=== PATIENT | male | born 1980 ===

== ENCOUNTER 2017-01-24 08:38 | Emergency (ER) | payer OTHER ==
[2017-01-24 08:44] VITALS: BP 162/82; PULSE 81; RESP 18; TEMP 98.1; O2SAT 98
--- NOTE | 2017-01-24 08:55 | ED PDOC ---
HPI: General Adult Time Seen by Provider: 01/24/17 08:43 History Per: Patient (Rectal pain and itching x 3 days. Noticed blood on paper when wiping.) Onset/Duration Of Symptoms: Days (3) Current Symptoms Are (Timing): Still Present Severity: Mild Pain Scale Rating Of: 2 Past Medical History Vital Signs: Last Vital Signs Temp 98.1 F 01/24/17 08:43 Pulse 81 01/24/17 08:43 Resp 18 01/24/17 08:43 BP 162/82 H 01/24/17 08:43 Pulse Ox 98 01/24/17 08:43 - Medical History PMH: Diverticulitis - Family History Family History: States: Unknown Family Hx - Home Medications Home Medications: Ambulatory Orders Medication Instructions Recorded Naproxen 500 mg PO BID PRN #20 tab 08/14/16 Hard Fat/Phenylephrine [place] 1 sup RC BID #10 sup 01/24/17 [Anusol Suppository] Naproxen [Naprosyn] 500 mg PO Q12H #20 tab 01/24/17 - Allergies Allergies/Adverse Reactions: Allergies Allergy/AdvReac Type Severity Reaction Status Date / Time No Known Allergies Allergy Verified 08/14/16 14:43 Review of Systems Constitutional: Negative for: Fever Gastrointestinal: Positive for: Hematochezia, Other (Rectal pain). Negative for : Abdominal Pain Physical Exam - Physical Exam Appears: Positive for: Non-toxic, No Acute Distress Skin: Positive for: Normal Color, Warm, DRY Gastrointestinal/Abdominal: Positive for: Bowel Sounds, Soft. Negative for: Tenderness Rectal: Positive for: Hemorrhoids (Ext hemorrhoid 9 oclock no blood on glove no masses.) - ECG O2 Sat by Pulse Oximetry: 98 Disposition - Clinical Impression Clinical Impression: Hemorrhoids - Patient ED Disposition Is Patient to be Admitted: No Counseled Patient/Family Regarding: Diagnosis, Need For Followup, Rx Given - Disposition Referrals: [facility] [Outside] Disposition: Routine/Home Disposition Time: 08:55 Condition: FAIR Prescriptions: Hard Fat/Phenylephrine [place] [Anusol Suppository] 1 sup RC BID #10 sup Naproxen [Naprosyn] 500 mg PO Q12H #20 tab Instructions: Hemorrhoids (ED)
== END 2017-01-24 09:49 | disposition home or self-care (01) ==
LOC: H.ER 08:38 → SUPCPDRO 08:38 → H.ER 09:49
DX: K64.9 Unspecified hemorrhoids (principal)

== ENCOUNTER 2017-05-20 16:00 | Observation (INO) | payer SELFPAY ==
[2017-05-20 16:16] VITALS: BP 144/74; PULSE 67; RESP 20; TEMP 98.8; O2SAT 98
[2017-05-20] MEDS ORDERED: Iohexol 240 (50 ml) PO STA (16:32)
[2017-05-20] MEDS ORDERED: Morphine 4 MG/ML VIAL IV STA (16:33)
[2017-05-20] MEDS ORDERED: Iohexol 240 (50 ml) ONE (16:46)
--- NOTE | 2017-05-20 16:49 | ED PDOC ---
"HPI: Abdomen Time Seen by Provider: 05/20/17 16:19 Chief Complaint (Nursing): Abdominal Pain Chief Complaint (Provider): Abdominal Pain History Per: Patient Onset/Duration Of Symptoms: Days (x1 week) Current Symptoms Are (Timing): Still Present Additional Complaint(s): Kendrick Alvarez is a 36 year male with previous medical history of diverticulitis and hypertension, who presents to the emergency department with a complaint of right abdominal swelling associated with hematuria ongoing for 1 week. Denied any dysuria, fever, chills, nausea, vomiting, constipation, or diarrhea. Of note, patient was seen in another hospital 2 years ago for intestinal surgery for the diverticulitis. PMD: none provided Past Medical History Reviewed: Historical Data, Nursing Documentation, Vital Signs Vital Signs: Last Vital Signs Temp 98.8 F 05/20/17 16:13 Pulse 67 05/20/17 16:13 Resp 20 05/20/17 16:13 BP 144/74 05/20/17 16:13 Pulse Ox 98 05/20/17 22:28 - Medical History PMH: Diverticulitis, HTN - Family History Family History: States: Unknown Family Hx - Social History Current smoker - smoking cessation education provided: No Alcohol: None Drugs: Denies - Home Medications Home Medications: Ambulatory Orders Medication Instructions Recorded Naproxen 500 mg PO BID PRN #20 tab 08/14/16 Hard Fat/Phenylephrine [place] 1 sup RC BID #10 sup 01/24/17 [Anusol Suppository] Naproxen [Naprosyn] 500 mg PO Q12H #20 tab 01/24/17 Naproxen [Naprosyn] 500 mg PO BID PRN #15 tablet 05/20/17 - Allergies Allergies/Adverse Reactions: Allergies Allergy/AdvReac Type Severity Reaction Status Date / Time No Known Allergies Allergy Verified 05/20/17 16:13 Review of Systems ROS Statement: Except As Marked, All Systems Reviewed And Found Negative Constitutional: Negative for: Fever, Chills Gastrointestinal: Positive for: Abdominal Pain (right sided swelling). Negative for: Nausea, Vomiting, Diarrhea, Constipation Genitourinary Male: Negative for: Dysuria Physical Exam - Reviewed Nursing Documentation Reviewed: Yes Vital Signs Reviewed: Yes - Physical Exam Appears: Positive for: Well, Non-toxic, No Acute Distress Head Exam: Positive for: ATRAUMATIC, NORMAL INSPECTION, NORMOCEPHALIC Skin: Positive for: Normal Color Cardiovascular/Chest: Positive for: Regular Rate, Rhythm Respiratory: Positive for: CNT, Normal Breath Sounds Gastrointestinal/Abdominal: Positive for: Soft, Tenderness (RUQ > RLQ), Other ( right T-shaped horizontal scar). Negative for: Normal Exam Extremity: Positive for: Normal ROM Neurologic/Psych: Positive for: Alert, chef broiler or fry II-XII, Oriented - Laboratory Results Result Diagrams: 05/20/17 17:11 05/20/17 17:11 - ECG O2 Sat by Pulse Oximetry: 98 (RA) Pulse Ox Interpretation: Normal Medical Decision Making Medical Decision Making: Initial Impression: UTI; Pyelonephritis; Kidney stones Initial Plan: * CT ABD/Pelvis with PO and IV contrast * Labs * Lipase * Urine dipstick * Omnipaque 240 50ml PO * Morphine 2mg IV * Urinalysis * Admit to hospital Time: 2016 --CT ABD/Pelvis FINDINGS: Limitations: The examination is degraded by motion artifact and by image noise secondary to the patient's body habitus. Lower thorax: No pulmonary airspace consolidation or pleural fluid collection in the imaged portion of the thorax. ABDOMEN: Liver: No acute findings. Gallbladder and bile ducts: No acute findings. No radiopaque gallstones. Pancreas: No acute findings. Spleen: No acute findings. Adrenals: No acute findings. Kidneys and ureters: No urinary tract dilation, perinephric fat stranding, or radiopaque ureteral calculus. Redemonstrated small, nonobstructing calculus in the right renal collecting system. Stomach and bowel: Redemonstrated diastasis recti versus a wide-mouth ventral hernia of the upper abdominal wall with protrusion of several small bowel loops into the abdominal wall defect. There is mild dilation of several small bowel loops either just proximal or just distal to the bowel KENDRICK ARREDONDO | Preliminary Radiology Report RESOURCE SPECIALIST (QA) DISCREPANCY? If there is a discrepancy between the preliminary and final interpretation, please notify [facility] via [email or web address]. If you do not have access to our QA portal, call our QA team at [phone] CONFIDENTIALITY STATEMENT This report is intended only for the use of the referring physician, and only in accordance with law, If you received this in error, call [phone] Page 2 of 2 protruding into the abdominal wall defect. No other dilated small bowel loops. Oral contrast has passed through all of the small bowel to the level of the terminal ileum. Redemonstrated postsurgical changes consistent with subtotal colectomy. No evident acute abnormality of the remaining colon. Appendix: Normal appendix. PELVIS: Bladder: No evident acute abnormality. Reproductive: No evident acute abnormality of the imaged structures. ABDOMEN and PELVIS: Intraperitoneal space: No free intraperitoneal fluid or air. Bones/joints: No acute findings. Soft tissues: See above. Vasculature: No acute findings. Lymph nodes: No acute findings. IMPRESSION: 1. Redemonstrated diastasis recti versus a wide-mouth ventral hernia of the upper abdominal wall with protrusion of several small bowel loops into the abdominal wall defect. Mild dilation of several small bowel loops either just proximal or just distal to the bowel protruding into the abdominal wall defect may simply represent peristalsis but differential diagnosis also includes a low-grade partial small bowel obstruction. Oral contrast has passed through all of the small bowel to the level of the terminal ileum. 2. No other evident acute abnormality. Non-acute findings as described above Time: 2219 --Patient was evaluated by surgical services manager. Scribe Attestation: Documented by Nicky Ramirez, acting as a scribe for Lena Valentin MD. Provider Scribe Attestation: All medical record entries made by the Scribe were at my direction and personally dictated by me. I have reviewed the chart and agree that the record accurately reflects my personal performance of the history, physical exam, medical decision making, and the department course for this patient. I have also personally directed, reviewed, and agree with the discharge instructions and disposition. Disposition - Clinical Impression Clinical Impression: Abdominal pain, Hematuria - Disposition Disposition: Routine/Home Disposition Time: 22:29 Condition: STABLE"
[2017-05-20 17:18] LABS: BASO # 0.1 K/uL (0.0-0.2); BASO % 0.9 % (0.0-2.0); EOS # 0.1 K/uL (0.0-0.7); EOS % 1.2 % (0.0-4.0); HEMOGLOBIN 13.4 g/dL (12.0-18.0); LYMPH # 2.4 K/uL (1.0-4.3); LYMPH % 26.6 % (20.0-40.0); MEAN CELL VOLUME 86.8 fl (80.0-94.0); MEAN CORPUSCULAR HEMOGLOBIN 28.7 pg (27.0-31.0); MEAN PLATELET VOLUME 8.9 fl (7.2-11.7); MONO # 0.7 K/uL (0.0-0.8); MONO % 7.1 % (0.0-10.0); NEUT # 5.9 K/uL (1.8-7.0); NEUT % 64.2 % (50.0-75.0); RBC 4.69 Mil/uL (4.40-5.90); RED CELL DISTRIBUTION WIDTH 12.9 % (11.5-14.5); WHITE BLOOD COUNT 9.2 K/uL (4.8-10.8)
[2017-05-20 17:26] LABS: ALB/GLOB RATIO 1.4 (1.0-2.1); ALBUMIN 4.3 g/dL (3.5-5.0); ALT/SGPT 52 U/L (21-72); AST/SGOT 43 U/L (17-59); BLOOD UREA NITROGEN 14 mg/dl (9-20); CALCIUM 8.8 mg/dL (8.4-10.2); GFR AFRICAN-AMERICAN > 60; GFR NON-AFRICAN AMERICAN > 60; LIPASE 31 U/L (23-300)
[2017-05-20 17:28] LABS: URINE AMORPHOUS SEDIMENT RARE /ul (<OCC); URINE BACTERIA RARE (<OCC); URINE BILIRUBIN NEGATIVE (NEGATIVE); URINE BLOOD SMALL (NEGATIVE); URINE CLARITY CLOUDY (Clear); URINE COLOR YELLOW (YELLOW); URINE GLUCOSE (UA) NEG (Normal); URINE LEUKOCYTE ESTERASE NEG Leu/uL (Negative); URINE NITRATE NEGATIVE (NEGATIVE); URINE PROTEIN NEGATIVE (NEGATIVE)
--- NOTE | 2017-05-21 08:28 | CT ---
PROCEDURE: CT Abdomen and Pelvis without intravenous contrast HISTORY: R sided abd pain, hematuria COMPARISON: 08/14/2016 TECHNIQUE: Technique. Contrast Dose: Radiation dose: Total exam DLP = 1128 mGy-cm. This CT exam was performed using one or more of the following dose reduction techniques: Automated exposure control, adjustment of the mA and/or kV according to patient size, and/or use of iterative reconstruction technique. FINDINGS: LOWER THORAX: Unremarkable. LIVER: Unremarkable. No gross lesion or ductal dilatation. GALLBLADDER AND BILE DUCTS: Unremarkable. PANCREAS: Unremarkable. No gross lesion or ductal dilatation. SPLEEN: Unremarkable. ADRENALS: Unremarkable. No mass. KIDNEYS AND URETERS: 4 millimeter nonobstructive right renal calculus.. No hydronephrosis. No solid mass. VASCULATURE: Unremarkable. No aortic aneurysm. BOWEL: Unremarkable. No obstruction. No gross mural thickening. APPENDIX: Unremarkable. Normal appendix. PERITONEUM: Unremarkable. No free fluid. No free air. LYMPH NODES: Unremarkable. No enlarged lymph nodes. BLADDER: Unremarkable. REPRODUCTIVE: Unremarkable. BONES: No acute fracture. OTHER FINDINGS: Re-demonstration a ventral abdominal wall hernia containing small bowel loops with mild distention a segment of small bowel compatible with ileus.. IMPRESSION: Re-demonstration a ventral abdominal wall hernia containing small bowel loops with mild distention a segment of small bowel compatible with ileus.. Right nephrolithiasis.
== END 2017-05-20 22:29 | disposition home or self-care (01) ==
LOC: H.ER 16:00 → H.EROBSV 16:33
PROVIDERS: ADMIT Emergency Medicine; ATTEND Emergency Medicine
DX: N39.0 Urinary tract infection, site not specified (principal); N20.0 Calculus of kidney; R31.9 Hematuria, unspecified; I10 Essential (primary) hypertension

== ENCOUNTER 2017-08-18 11:59 | Day surgery (SDC) | payer OTHER ==
[2017-08-18] MEDS ORDERED: Lactated Ringer's 500 ML IV ONE (12:13)
[2017-08-18] MEDS ORDERED: Lidocaine 2% MPF (5 ml) Inj ONE (12:53)
[2017-08-18] MEDS ORDERED: Propofol 10 mg/ml Inj (20 ML) ONE (12:53)
[2017-08-18 13:07] VITALS: TEMP 97; O2SAT 98
[2017-08-18 13:16] VITALS: BP 120/70; PULSE 63; RESP 20
== END 2017-08-18 14:00 | disposition home or self-care (01) ==
LOC: H.ENDO 11:59
PROVIDERS: ATTEND Internal Medicine Gastroenterology
DX: K57.30 Diverticulosis of large intestine without perforation or abscess without bleeding (principal); K57.32 Diverticulitis of large intestine without perforation or abscess without bleeding; K64.8 Other hemorrhoids; Z98.0 Intestinal bypass and anastomosis status
CPT/HCPCS: 45378; J2704; J7120

== ENCOUNTER 2017-12-29 07:55 | Emergency (ER) | payer SELFPAY ==
[2017-12-29 10:15] LABS: PARTIAL THROMBOPLASTIN TIME 32.8 Seconds (25.6-37.1); PROTHROMBIN TIME 10.9 Seconds (9.8-13.1)
[2017-12-29 10:26] LABS: BASO % 0.3 % (0.0-2.0); EOS # 0.1 K/uL (0.0-0.7); EOS % 1.1 % (0.0-4.0); HEMOGLOBIN 14.6 g/dL (12.0-18.0); LYMPH # 2.3 K/uL (1.0-4.3); LYMPH % 31.4 % (20.0-40.0); MEAN CORPUSCULAR HEMOGLOBIN 29.1 pg (27.0-31.0); MEAN CORPUSCULAR HGB CONC 33.8 g/dL (33.0-37.0); MEAN PLATELET VOLUME 8.8 fl (7.2-11.7); MONO # 0.4 K/uL (0.0-0.8); MONO % 5.6 % (0.0-10.0); NEUT # 4.5 K/uL (1.8-7.0); NEUT % 61.6 % (50.0-75.0); NRBC % 0.1 % (0.0-0.0); RBC 5.02 Mil/uL (4.40-5.90); RED CELL DISTRIBUTION WIDTH 12.8 % (11.5-14.5); WHITE BLOOD COUNT 7.3 K/uL (4.8-10.8)
[2017-12-29 10:37] LABS: URINE BILIRUBIN NEGATIVE (NEGATIVE); URINE BLOOD LARGE (NEGATIVE); URINE CLARITY SLIGHTY-CLOUDY (Clear); URINE COLOR YELLOW (YELLOW); URINE GLUCOSE (UA) NEG (Normal); URINE PROTEIN NEGATIVE (NEGATIVE)
[2017-12-29 10:38] LABS: URINE LEUKOCYTE ESTERASE NEG Leu/uL (Negative); URINE UROBILINOGEN 0.2-1.0 mg/dL (0.2-1.0)
[2017-12-29 11:27] LABS: BLOOD UREA NITROGEN 9 mg/dl (9-20); GFR AFRICAN-AMERICAN > 60; GFR NON-AFRICAN AMERICAN > 60
[2017-12-29 11:28] LABS: ALB/GLOB RATIO 1.3 (1.0-2.1); ALBUMIN 4.4 g/dL (3.5-5.0); CALCIUM 9.2 mg/dL (8.4-10.2)
[2017-12-29 11:29] LABS: ALT/SGPT 51 U/L (21-72); AST/SGOT 39 U/L (17-59)
[2017-12-29] MEDS ORDERED: Iohexol 300 100 ML IJ ONE (11:38)
--- NOTE | 2017-12-29 11:48 | ED PDOC ---
HPI: Abdomen Time Seen by Provider: 12/29/17 08:42 Chief Complaint (Nursing): Abdominal Pain Chief Complaint (Provider): Abdominal Pain History Per: Patient History/Exam Limitations: no limitations Onset/Duration Of Symptoms: Hrs, Intermittent Episodes Current Symptoms Are (Timing): Still Present Associated Symptoms: denies: Fever, Nausea, Vomiting, Diarrhea, Urinary Symptoms Additional Complaint(s): Kendrick Alvarez is a 37 year old male with a past medical history of hypertension and diverticulitis, who is presenting to the ER with complains of intermittent abdominal pain, onset today. He denies any fever, nausea, vomiting, diarrhea, or genitourinary symptoms. Patient offers no other medical complaints at this time. PMD: none provided Past Medical History Reviewed: Historical Data, Nursing Documentation, Vital Signs Vital Signs: Last Vital Signs Temp 98.8 F 12/29/17 13:36 Pulse 64 12/29/17 13:36 Resp 15 12/29/17 13:36 BP 126/74 12/29/17 13:36 Pulse Ox 98 12/29/17 13:53 - Medical History PMH: Diverticulitis, HTN Denies: Chronic Kidney Disease - Surgical History Other surgeries: unknown surgery seconday to diverticulitis - Family History Family History: States: Unknown Family Hx - Social History Current smoker - smoking cessation education provided: No Alcohol: None Drugs: Denies - Home Medications Home Medications: Ambulatory Orders Medication Instructions Recorded Tamsulosin [Flomax] 0.4 mg PO DAILY #14 cap 12/29/17 oxyCODONE/Acetaminophen [Percocet 1 tab PO Q6H PRN #10 tab 12/29/17 5/325 mg Tab] - Allergies Allergies/Adverse Reactions: Allergies Allergy/AdvReac Type Severity Reaction Status Date / Time No Known Allergies Allergy Verified 05/20/17 16:13 Review of Systems ROS Statement: Except As Marked, All Systems Reviewed And Found Negative Constitutional: Negative for: Fever Gastrointestinal: Negative for: Nausea, Vomiting, Diarrhea Genitourinary Male: Negative for: Other (genitourinary problems) Physical Exam - Reviewed Nursing Documentation Reviewed: Yes Vital Signs Reviewed: Yes - Physical Exam Appears: Positive for: Non-toxic, No Acute Distress Head Exam: Positive for: ATRAUMATIC, NORMAL INSPECTION, NORMOCEPHALIC Skin: Positive for: Normal Color, Warm, DRY Eye Exam: Positive for: EOMI, Normal appearance, PERRL Neck: Positive for: Normal, Painless ROM, Supple Cardiovascular/Chest: Positive for: Regular Rate, Rhythm. Negative for: Murmur Respiratory: Positive for: Normal Breath Sounds. Negative for: Respiratory Distress Gastrointestinal/Abdominal: Positive for: Soft, Tenderness (left upper quadrant ) Back: Positive for: Normal Inspection. Negative for: L CVA Tenderness, R CVA Tenderness, Vertebral Tenderness Extremity: Positive for: Normal ROM. Negative for: Pedal Edema, Deformity Neurologic/Psych: Positive for: Alert, Oriented. Negative for: Motor/Sensory Deficits - Laboratory Results Result Diagrams: 12/29/17 09:40 12/29/17 09:40 - ECG O2 Sat by Pulse Oximetry: 98 (RA) Pulse Ox Interpretation: Normal - Physician Consult Information Time Consulting Physican Contacted: 13:44 Physician Contacted: Domenico Peterson Outcome Of Conversation: Case discussed, stone on R and pain on LUQ, can discharge home with copy of CT to patient and follow-up in office. Medical Decision Making Medical Decision Making: Time: 9:40 Plan: --CT Abd/Pelvis --CMP --ED Urine Dipstick --CBC --PTT --Coag --Morphine 2 mg IV --Urinalysis Accession No. : [id number] Patient Name / ID : PAOLA MILLARD / [id number] Exam Date : 12/29/2017 11:38:28 ( Approved ) Study Comment : Sex / Age : M / 37Y Creator : Blake Higgins MD Dictator : Blake Higgins MD Carry Out Clerk And Shelf Stocker : Missing Persons Investigator : Blake Higgins MD Approver2 : Report Date : 12/29/2017 12:30:00 My Comment : PROCEDURE: CT Abdomen and Pelvis with contrast HISTORY: Left upper quadrant pain COMPARISON: 05/20/2017 CT abdomen and pelvis TECHNIQUE: Contrast dose: 100 cc Omnipaque 300 Radiation dose: Total exam DLP = 1174.44 mGy-cm. This CT exam was performed using one or more of the following dose reduction techniques: Automated exposure control, adjustment of the mA and/or kV according to patient size, and/or use of iterative reconstruction technique. FINDINGS: LOWER THORAX: Unremarkable. LIVER: Unremarkable. No gross lesion or ductal dilatation. GALLBLADDER AND BILE DUCTS: Unremarkable. PANCREAS: Unremarkable. No gross lesion or ductal dilatation. SPLEEN: Unremarkable. ADRENALS: Unremarkable. No mass. KIDNEYS AND URETERS: Stretching calculus right ureteropelvic junction 5 x 10 mm. No distal ureteral calculi identified on the right. Unremarkable left kidney in ureter. VASCULATURE: Unremarkable. No aortic aneurysm. BOWEL: Unremarkable. No obstruction. No gross mural thickening. Stable anterior abdominal wall, ventral hernia without evidence of incarceration or obstruction. Incidental finding(s): Surgical suture line in the sigmoid. No evidence of obstruction. APPENDIX: Normal appendix. PERITONEUM: Unremarkable. No free fluid. No free air. LYMPH NODES: Unremarkable. No enlarged lymph nodes. BLADDER: Unremarkable. REPRODUCTIVE: Unremarkable. BONES: No acute fracture. OTHER FINDINGS: None. IMPRESSION: Proximal right ureteral calculus, UPJ location 5 x 10 mm. Additional benign and/or incidental findings described above. Scribe Attestation: Documented by Rody Valentine, acting as a scribe for Lena Valentin MD. Provider Scribe Attestation: All medical record entries made by the Scribe were at my direction and personally dictated by me. I have reviewed the chart and agree that the record accurately reflects my personal performance of the history, physical exam, medical decision making, and the department course for this patient. I have also personally directed, reviewed, and agree with the discharge instructions and disposition. Disposition - Clinical Impression Clinical Impression: Ureteral calculus, right - Disposition Referrals: [facility] [Outside] Domenico Peterson MD [Medical Doctor] - Disposition: Routine/Home Disposition Time: 13:48 Condition: IMPROVED Prescriptions: oxyCODONE/Acetaminophen [Percocet 5/325 mg Tab] 1 tab PO Q6H PRN #10 tab PRN Reason: Pain, Severe (8-10) Tamsulosin [Flomax] 0.4 mg PO DAILY #14 cap Instructions: Kidney Stones in Adults, How to Strain Your Urine Forms: [facility] (Sri Lankan) Print Language: K[place]AN[place]
--- NOTE | 2017-12-29 12:31 | CT ---
PROCEDURE: CT Abdomen and Pelvis with contrast HISTORY: Left upper quadrant pain COMPARISON: 05/20/2017 CT abdomen and pelvis TECHNIQUE: Contrast dose: 100 cc Omnipaque 300 Radiation dose: Total exam DLP = 1174.44 mGy-cm. This CT exam was performed using one or more of the following dose reduction techniques: Automated exposure control, adjustment of the mA and/or kV according to patient size, and/or use of iterative reconstruction technique. FINDINGS: LOWER THORAX: Unremarkable. LIVER: Unremarkable. No gross lesion or ductal dilatation. GALLBLADDER AND BILE DUCTS: Unremarkable. PANCREAS: Unremarkable. No gross lesion or ductal dilatation. SPLEEN: Unremarkable. ADRENALS: Unremarkable. No mass. KIDNEYS AND URETERS: Stretching calculus right ureteropelvic junction 5 x 10 mm. No distal ureteral calculi identified on the right. Unremarkable left kidney in ureter. VASCULATURE: Unremarkable. No aortic aneurysm. BOWEL: Unremarkable. No obstruction. No gross mural thickening. Stable anterior abdominal wall, ventral hernia without evidence of incarceration or obstruction. Incidental finding(s): Surgical suture line in the sigmoid. No evidence of obstruction. APPENDIX: Normal appendix. PERITONEUM: Unremarkable. No free fluid. No free air. LYMPH NODES: Unremarkable. No enlarged lymph nodes. BLADDER: Unremarkable. REPRODUCTIVE: Unremarkable. BONES: No acute fracture. OTHER FINDINGS: None. IMPRESSION: Proximal right ureteral calculus, UPJ location 5 x 10 mm. Additional benign and/or incidental findings described above.
[2017-12-29 13:37] VITALS: BP 126/74; PULSE 64; RESP 15; TEMP 98.8
[2017-12-29 13:47] VITALS: O2SAT 98
== END 2017-12-29 14:40 | disposition home or self-care (01) ==
LOC: H.ER 07:55
DX: N20.1 Calculus of ureter (principal); I10 Essential (primary) hypertension
CPT/HCPCS: 74177; 80053; 81003; 85025; 85610; 85730; 99284; J2270; Q9967

== ENCOUNTER 2018-05-11 00:37 | Emergency (ER) | payer SELFPAY ==
[2018-05-11] MEDS ORDERED: Sodium Chloride 0.9% 1,000 ML IV STA ×2 (01:40→04:08)
--- NOTE | 2018-05-11 02:03 | ED PDOC ---
HPI: Abdomen Time Seen by Provider: 05/11/18 01:08 Chief Complaint (Nursing): Abdominal Pain Chief Complaint (Provider): abdominal pain Additional Complaint(s): 37 y/o male presents for evaluation of abdominal pain x 3 hours. Associated radiation of pain to back. Denies fever, nausea/vomiting, chest pain, shortness of breath, palpitations, urinary symptoms, changes in bowel movements. No medication taken for relief thus far Past Medical History Reviewed: Historical Data, Nursing Documentation, Vital Signs Vital Signs: Last Vital Signs Temp 97.8 F 05/11/18 05:43 Pulse 60 05/11/18 05:43 Resp 20 05/11/18 05:43 BP 132/72 05/11/18 05:43 Pulse Ox 96 05/11/18 05:43 - Medical History PMH: Diverticulitis, HTN Denies: Chronic Kidney Disease - Surgical History Other surgeries: colectomy - Family History Family History: States: Unknown Family Hx - Home Medications Home Medications: Ambulatory Orders Medication Instructions Recorded Tamsulosin [Flomax] 0.4 mg PO DAILY #14 cap 12/29/17 oxyCODONE/Acetaminophen [Percocet 1 tab PO Q6H PRN #10 tab 12/29/17 5/325 mg Tab] Ondansetron [Zofran] 4 mg PO Q8H PRN #10 tab 05/11/18 Tamsulosin [Flomax] 0.4 mg PO DAILY #10 cap 05/11/18 oxyCODONE/Acetaminophen [Percocet 1 ea PO Q6 PRN #10 tab 05/11/18 5/325 mg Tab] - Allergies Allergies/Adverse Reactions: Allergies Allergy/AdvReac Type Severity Reaction Status Date / Time No Known Allergies Allergy Verified 05/11/18 01:08 Review of Systems ROS Statement: Except As Marked, All Systems Reviewed And Found Negative Gastrointestinal: Positive for: Abdominal Pain Musculoskeletal: Positive for: Back Pain Physical Exam - Reviewed Nursing Documentation Reviewed: Yes Vital Signs Reviewed: Yes - Physical Exam Appears: Positive for: Well, Non-toxic, Uncomfortable Head Exam: Positive for: ATRAUMATIC, NORMAL INSPECTION, NORMOCEPHALIC Skin: Positive for: Normal Color Eye Exam: Positive for: Normal appearance ENT: Positive for: Normal ENT Inspection Cardiovascular/Chest: Positive for: Regular Rate, Rhythm Respiratory: Positive for: Normal Breath Sounds Gastrointestinal/Abdominal: Positive for: Normal Exam, Bowel Sounds, Soft, Tenderness (diffuse) Back: Positive for: Normal Inspection Extremity: Positive for: Normal ROM - Laboratory Results Result Diagrams: 05/11/18 00:08 05/11/18 00:08 - ECG O2 Sat by Pulse Oximetry: 98 - Progress ED Course And Treament: labs, urine, CT renal protocol, IV fluids, IV zofran, IV toradol EXAM: CT Abdomen and Pelvis Without Intravenous Contrast EXAM DATE/TIME: 05/11/2018 3:04 AM CLINICAL HISTORY: 37 years old, male; Pain; Other: Back; Prior surgery; Surgery date: 6+ months; Surgery type: Abdominal diverticulitis. Colectomy; Additional info: Abd/back pain TECHNIQUE: Axial computed tomography images of the abdomen and pelvis without intravenous contrast. All CT scans at this facility use at least one of these dose optimization techniques: automated exposure control; mA and/or kV adjustment per patient size (includes targeted exams where dose is matched to clinical indication); or iterative reconstruction. Coronal and sagittal reformatted images were created and reviewed. COMPARISON: CT - ABD PELVIS IV CONTRAST ONLY 2017-12-29 11:38 FINDINGS: Lower thorax: No acute findings. ABDOMEN: Liver: Normal. No mass. Gallbladder and bile ducts: Normal. No calcified stones. No ductal dilation. Pancreas: Normal. No ductal dilation. Spleen: Normal. No splenomegaly. Adrenals: Normal. No mass. Kidneys and ureters: The previously described right ureteropelvic junction calculus measuring approximately 6-7 mm is again identified. There is mild to moderate right hydronephrosis. Stomach and bowel: The previously described right anterior abdominal wall hernia is again noted; there are nondilated loops of small bowel within or adjacent to the hernia, unchanged in appearance. Appendix: Appendix is well visualized and appears normal. PELVIS: Bladder: Unremarkable as visualized. Reproductive: Unremarkable as visualized. ABDOMEN and PELVIS: Intraperitoneal space: Normal. No free air. No significant fluid collection. Bones/joints: No acute fracture. No dislocation. Soft tissues: Unremarkable. Vasculature: Normal. No abdominal aortic aneurysm. Lymph nodes: Normal. No enlarged lymph nodes. IMPRESSION: 1. Stable appearance of obstructing 7 mm right ureteropelvic junction calculus with mild to moderate right hydronephrosis. 2. Stable appearing right anterior abdominal wall hernia without evidence of intestinal obstruction. 3. There is no other evidence of solid visceral mass, adenopathy or mesenteric infiltrative or inflammatory process. 4. No change when compared to the CT - ABD PELVIS IV CONTRAST ONLY 2017-12-29 11 :38 On re-eval, patient sleeping; upon awakening states pain improved Tolerating PO Patient states he never followed up with Urology after being diagnosed with stone in December Patient educated on importance of follow up, for possible intervention Rx percocet, zofran, flomax given Return precautions given Disposition - Clinical Impression Clinical Impression: Kidney stone on right side - Patient ED Disposition Is Patient to be Admitted: No Counseled Patient/Family Regarding: Studies Performed, Diagnosis, Need For Followup, Rx Given - Disposition Referrals: Angelo Hunter MD [Staff Provider] - Disposition: Routine/Home Disposition Time: 05:31 Condition: IMPROVED Prescriptions: Ondansetron [Zofran] 4 mg PO Q8H PRN #10 tab PRN Reason: Nausea/Vomiting oxyCODONE/Acetaminophen [Percocet 5/325 mg Tab] 1 ea PO Q6 PRN #10 tab PRN Reason: Pain, Severe (8-10) Tamsulosin [Flomax] 0.4 mg PO DAILY #10 cap Instructions: Kidney Stones in Adults, Renal Colic Print Language: CITIZEN [place]
[2018-05-11 02:17] LABS: BASO % 0.5 % (0.0-2.0); EOS # 0.1 K/uL (0.0-0.7); EOS % 1.2 % (0.0-4.0); HEMOGLOBIN 14.2 g/dL (12.0-18.0); LYMPH # 2.7 K/uL (1.0-4.3); LYMPH % 27.7 % (20.0-40.0); MEAN CELL VOLUME 85.9 fl (80.0-94.0); MEAN CORPUSCULAR HEMOGLOBIN 29.2 pg (27.0-31.0); MEAN PLATELET VOLUME 8.3 fl (7.2-11.7); MONO # 0.6 K/uL (0.0-0.8); MONO % 6.6 % (0.0-10.0); NEUT # 6.3 K/uL (1.8-7.0); RBC 4.85 Mil/uL (4.40-5.90); RED CELL DISTRIBUTION WIDTH 12.9 % (11.5-14.5); WHITE BLOOD COUNT 9.8 K/uL (4.8-10.8)
[2018-05-11 02:30] LABS: ALB/GLOB RATIO 1.3 (1.0-2.1); ALBUMIN 4.4 g/dL (3.5-5.0); ALT/SGPT 50 U/L (21-72); AST/SGOT 36 U/L (17-59); BLOOD UREA NITROGEN 13 mg/dl (9-20); CALCIUM 9.1 mg/dL (8.4-10.2); GFR NON-AFRICAN AMERICAN > 60; LIPASE 38 U/L (23-300)
[2018-05-11 03:20] LABS: URINE BILIRUBIN NEGATIVE (NEGATIVE); URINE BLOOD LARGE (NEGATIVE); URINE CLARITY CLEAR (Clear); URINE COLOR STRAW (YELLOW); URINE GLUCOSE (UA) NEG (Normal); URINE LEUKOCYTE ESTERASE NEG Leu/uL (Negative); URINE PROTEIN NEGATIVE (NEGATIVE); URINE UROBILINOGEN 0.2-1.0 mg/dL (0.2-1.0)
[2018-05-11 05:44] VITALS: BP 132/72; PULSE 60; RESP 20; TEMP 97.8
--- NOTE | 2018-05-11 11:58 | CT ---
Date of service: 05/11/2018 PROCEDURE: CT Abdomen and Pelvis without intravenous contrast HISTORY: abd/back pain COMPARISON: Abdomen pelvis CT with contrast 12/29/2017. TECHNIQUE: Helical CT of the abdomen and pelvis was performed without oral or intravenous contrast as per referring physician request. Contrast dose: None Radiation dose: Total exam DLP = 931.48 mGy-cm. This CT exam was performed using one or more of the following dose reduction techniques: Automated exposure control, adjustment of the mA and/or kV according to patient size, and/or use of iterative reconstruction technique. FINDINGS: LOWER THORAX: A small hiatal hernia is identified. LIVER: Unremarkable. No gross lesion or ductal dilatation. GALLBLADDER AND BILE DUCTS: Unremarkable. PANCREAS: Unremarkable. No gross lesion or ductal dilatation. SPLEEN: Unremarkable. ADRENALS: Unremarkable. No mass. KIDNEYS AND URETERS: There is persistent kekx-fo-wubpyfoa right hydronephrosis due to an obstructing calculus at the right ureteropelvic pelvic junction measuring 5.0 x 9.0 mm. A punctate intrarenal calculus identified in the right kidney as well at the mid to lower pole level. No additional radiodense urolithiasis bilaterally otherwise with the ureters normal in caliber. Trace right perinephric reaction is appreciated. No perinephric fluid collection bilaterally. VASCULATURE: Unremarkable. No aortic aneurysm. BOWEL: The stomach is distended by gas and retained food moderately. No bowel obstruction is identified. There is a stable right upper quadrant paracentral ventral abdominal hernia involving primarily small bowel segments once again. No evidence to suggest incarceration. Ectatic sigmoid colon. Sigmoid anastomosis reiterated. APPENDIX: Unremarkable. Normal appendix. PERITONEUM: Unremarkable. No free fluid. No free air. LYMPH NODES: Unremarkable. No enlarged lymph nodes. BLADDER: Urinary bladder is distended but thin and smooth walled. No radiodense urolithiasis associated. REPRODUCTIVE: Unremarkable. BONES: No acute fracture. OTHER FINDINGS: None. IMPRESSION: 1. Persistent hfko-du-[id number] right hydronephrosis due to 5.0 x 9.0 mm calculus obstructing the ureter pelvic junction once again with limited right perinephric reaction but no fluid collection associated. A punctate intrarenal calculi is better identified on this noncontrast CT at the mid to lower pole right kidney. Distended but otherwise unremarkable appearing urinary bladder. No left-sided radiodense urolithiasis. 2. Able right paracentral ventral abdominal hernia without obstruction or definite incarceration pattern appreciable. 3. Sigmoid anastomosis reiterated. Concordant preliminary report from [facility], 05/11/2018.
[2018-05-17 03:03] VITALS: O2SAT 98
== END 2018-05-11 05:48 | disposition home or self-care (01) ==
LOC: H.ER 00:37
DX: N20.1 Calculus of ureter (principal); N13.2 Hydronephrosis with renal and ureteral calculous obstruction; K43.9 Ventral hernia without obstruction or gangrene; I10 Essential (primary) hypertension; Z90.49 Acquired absence of other specified parts of digestive tract
CPT/HCPCS: 74176; 80053; 81003; 83690; 85025; 96361; 96374; 96375; 99283; J1885; J2405; J7030

== ENCOUNTER 2018-07-01 08:33 | Emergency (ER) | payer SELFPAY ==
[2018-07-01 08:42] VITALS: BMI 45.1
[2018-07-01 08:44] VITALS: O2SAT 98
--- NOTE | 2018-07-01 09:40 | ED PDOC ---
HPI: General Adult Time Seen by Provider: 07/01/18 08:49 Chief Complaint (Nursing): Pain, Chronic Chief Complaint (Provider): Pain, Chronic History Per: Patient History/Exam Limitations: no limitations Onset/Duration Of Symptoms: Days (x3 months) Current Symptoms Are (Timing): Still Present Additional Complaint(s): 37 y/o male with no significant PMHx presents to the ED complaining of left elbow pain, onset three months ago. Patient reports of falling on elbow 3 months ago. PMD: Non CPH Provider Past Medical History Reviewed: Historical Data, Nursing Documentation, Vital Signs Vital Signs: Last Vital Signs Temp 98.7 F 07/01/18 08:42 Pulse 62 07/01/18 08:42 Resp 17 07/01/18 08:42 BP 150/85 07/01/18 08:42 Pulse Ox 98 07/01/18 09:42 - Medical History PMH: Diverticulitis, HTN Denies: Chronic Kidney Disease - Surgical History Surgical History: No Surg Hx - Family History Family History: States: Unknown Family Hx - Immunization History Hx Tetanus Toxoid Vaccination: No Hx Influenza Vaccination: No Hx Pneumococcal Vaccination: No - Home Medications Home Medications: Ambulatory Orders Medication Instructions Recorded Tamsulosin [Flomax] 0.4 mg PO DAILY #14 cap 12/29/17 oxyCODONE/Acetaminophen [Percocet 1 tab PO Q6H PRN #10 tab 12/29/17 5/325 mg Tab] Ondansetron [Zofran] 4 mg PO Q8H PRN #10 tab 05/11/18 Tamsulosin [Flomax] 0.4 mg PO DAILY #10 cap 05/11/18 oxyCODONE/Acetaminophen [Percocet 1 ea PO Q6 PRN #10 tab 05/11/18 5/325 mg Tab] Naproxen [Naprosyn] 500 mg PO Q12H #20 tab 07/01/18 - Allergies Allergies/Adverse Reactions: Allergies Allergy/AdvReac Type Severity Reaction Status Date / Time No Known Allergies Allergy Verified 05/11/18 01:08 Review of Systems ROS Statement: Except As Marked, All Systems Reviewed And Found Negative Musculoskeletal: Positive for: Arm Pain (left elbow) Physical Exam - Reviewed Nursing Documentation Reviewed: Yes Vital Signs Reviewed: Yes - Physical Exam Appears: Positive for: No Acute Distress Extremity: Positive for: Normal ROM (Full ROM at the left elbow), Other ( Neurovascularly intact). Negative for: Deformity, Swelling Neurologic/Psych: Positive for: Alert, Oriented - ECG O2 Sat by Pulse Oximetry: 98 (RA) Pulse Ox Interpretation: Normal Medical Decision Making Medical Decision Making: Time: 932 Plan: -- Left Elbow 3 Views XR Scribe Attestation: Documented by Gianfranco Joel acting as a scribe for Ho Reyes MD. Provider Scribe Attestation: All medical record entries made by the Scribe were at my direction and personally dictated by me. I have reviewed the chart and agree that the record accurately reflects my personal performance of the history, physical exam, medical decision making, and the department course for this patient. I have also personally directed, reviewed, and agree with the discharge instructions and disposition. Disposition - Clinical Impression Clinical Impression: Contusion, elbow - Patient ED Disposition Is Patient to be Admitted: No Counseled Patient/Family Regarding: Studies Performed, Diagnosis, Need For Followup, Rx Given - Disposition Referrals: [facility] [Outside] Disposition: Routine/Home Disposition Time: 09:50 Condition: FAIR Prescriptions: Naproxen [Naprosyn] 500 mg PO Q12H #20 tab Instructions: Contusion (DC) Forms: [facility] (Burkinan) Print Language: BENINESE
--- NOTE | 2018-07-01 10:09 | RAD ---
Date of service: 07/01/2018 PROCEDURE: Radiographs of the left elbow. HISTORY: trauma COMPARISON: No prior. FINDINGS: BONES: Three views of the left elbow were performed for left elbow pain. Mild degenerative changes are noted. No fracture is seen. No lytic process is noted. Small amount of olecranon spurring is noted. Small bone island is noted in the lateral epicondyles. No periosteal reaction is noted. No erosions are seen. JOINTS: See above. SOFT TISSUES: Normal. JOINT EFFUSION: None. OTHER FINDINGS: None IMPRESSION: No acute fracture or joint effusion.
[2018-07-01 10:24] VITALS: BP 122/70; PULSE 88; RESP 20; TEMP 98
== END 2018-07-01 10:25 | disposition home or self-care (01) ==
LOC: H.ER 08:33
DX: S50.02XA Contusion of left elbow, initial encounter (principal); W19.XXXA Unspecified fall, initial encounter; I10 Essential (primary) hypertension

== ENCOUNTER 2018-08-20 19:00 | Emergency (ER) | payer SELFPAY ==
[2018-08-20 19:00] VITALS: BMI 45.1
[2018-08-20 20:32] LABS: BASO # 0.1 K/uL (0.0-0.2); BASO % 0.6 % (0.0-2.0); EOS # 0.3 K/uL (0.0-0.7); EOS % 3.6 % (0.0-4.0); HEMOGLOBIN 13.6 g/dL (12.0-18.0); LYMPH # 2.2 K/uL (1.0-4.3); MEAN CELL VOLUME 86.4 fl (80.0-94.0); MEAN CORPUSCULAR HEMOGLOBIN 28.8 pg (27.0-31.0); MEAN CORPUSCULAR HGB CONC 33.4 g/dL (33.0-37.0); MEAN PLATELET VOLUME 8.8 fl (7.2-11.7); MONO # 0.8 K/uL (0.0-0.8); MONO % 9.4 % (0.0-10.0); NEUT # 5.1 K/uL (1.8-7.0); NEUT % 60.4 % (50.0-75.0); RBC 4.7 Mil/uL (4.40-5.90); RED CELL DISTRIBUTION WIDTH 13.1 % (11.5-14.5); WHITE BLOOD COUNT 8.5 K/uL (4.8-10.8)
[2018-08-20 20:51] LABS: BLOOD UREA NITROGEN 20 mg/dl (9-20); CALCIUM 8.8 mg/dL (8.4-10.2); GFR NON-AFRICAN AMERICAN > 60
--- NOTE | 2018-08-20 21:05 | ED PDOC ---
HPI: Back Time Seen by Provider: 08/20/18 19:42 Chief Complaint (Nursing): Abdominal Pain Chief Complaint (Provider): Left Flank Pain History Per: Patient History/Exam Limitations: no limitations Onset/Duration Of Symptoms: Days (1x day) Current Symptoms Are (Timing): Still Present Severity: Moderate Associated Symptoms: Other (vomiting, chills, bloody urine) Additional Complaint(s): 37 year old male with a past medical history of kidney stones and diverticulitis presents to the ED with complaints of left side flank pain that started earlier today. Patient states that the flank pain radiates to his groin and he had a similar pain when he had kidney stones in the past. Patient reports having associated symptoms of vomiting (2x episodes non bloody today), chills (last night), and bloody urine (last night). Patient denies having diarrhea. PMD: None Past Medical History Reviewed: Historical Data, Nursing Documentation, Vital Signs Vital Signs: Last Vital Signs Temp 98.7 F 08/20/18 19:29 Pulse 64 08/20/18 19:29 Resp 16 08/20/18 19:29 BP 174/92 H 08/20/18 19:29 Pulse Ox 98 08/20/18 19:29 - Medical History PMH: Diverticulitis, HTN, Kidney Stones Denies: Chronic Kidney Disease - Surgical History Surgical History: Cholecystectomy - Family History Family History: States: No Known Family Hx - Social History Alcohol: None Drugs: Denies - Immunization History Hx Tetanus Toxoid Vaccination: No Hx Influenza Vaccination: No Hx Pneumococcal Vaccination: No - Home Medications Home Medications: Ambulatory Orders Medication Instructions Recorded Cefuroxime Axetil [Cefuroxime] 500 mg PO BID #14 tablet 08/21/18 Ibuprofen [Motrin] 600 mg PO TID PRN #20 tab 08/21/18 RX: traMADol [Ultram] 50 mg PO TID PRN #15 tab 08/21/18 Tamsulosin [Flomax] 0.4 mg PO DAILY #30 cap 08/21/18 - Allergies Allergies/Adverse Reactions: Allergies Allergy/AdvReac Type Severity Reaction Status Date / Time No Known Allergies Allergy Verified 08/20/18 19:31 Review of Systems ROS Statement: Except As Marked, All Systems Reviewed And Found Negative Constitutional: Positive for: Chills (last night). Negative for: Fever Gastrointestinal: Positive for: Vomiting (2x episodes). Negative for: Diarrhea Genitourinary Male: Positive for: Hematuria (last night) Musculoskeletal: Positive for: Back Pain (left flank pain) Physical Exam - Reviewed Nursing Documentation Reviewed: Yes Vital Signs Reviewed: Yes - Physical Exam Appears: Positive for: Well, Non-toxic, Uncomfortable (moaning) Head Exam: Positive for: ATRAUMATIC, NORMOCEPHALIC Skin: Positive for: Normal Color Eye Exam: Positive for: Normal appearance, EOMI ENT: Positive for: Normal ENT Inspection Cardiovascular/Chest: Positive for: Regular Rate, Rhythm Respiratory: Positive for: Normal Breath Sounds Gastrointestinal/Abdominal: Positive for: Normal Exam, Soft, Other (morbidly obese). Negative for: Tenderness Back: Positive for: Normal Inspection. Negative for: L CVA Tenderness, R CVA Tenderness Neurologic/Psych: Positive for: Alert, Oriented (3x) - Laboratory Results Result Diagrams: 08/20/18 20:25 08/20/18 20:25 - ECG O2 Sat by Pulse Oximetry: 98 (RA) Pulse Ox Interpretation: Normal - CT Scan/US CT abdomen and pelvis w/o PO or IV contrast Other Rad Studies (CT/US): Read By Radiologist, Radiology Report Reviewed (see MDM note) - Progress Re-evaluation Time: 00:50 Condition: Re-examined, Improved Medical Decision Making Medical Decision Makin:42 Initial impression: 37 year old male with left flank pain. Differential diagnoses include but are not limited to renal colic, nephrolithiasis, and UTI. Initial plan: * CT abdomen and pelvis w/o PO or IV contrast * BMP * CBC * urinalysis * toradol 30 mg IVP * zofran 4 mg IVP * reevaluation 21:36 CT abdomen and pelvis w/o po or iv contrast read and reviewed by radiologist FINDINGS: LUNG BASES: The pulmonary bases are well-aerated. LIVER: Unremarkable. GALLBLADDER AND BILE DUCTS: The gallbladder is contracted, no radiopaque calculi. PANCREAS: Unremarkable. SPLEEN: Unremarkable. ADRENAL GLANDS: Unremarkable. KIDNEYS, URETERS, AND BLADDER: There is mild right hydronephrosis, dilated right renal pelvis and a 6.9 mm calculus at the UPJ. There is no left hydronephrosis, nephrolithiasis, or perinephric fat stranding. There are mild periureteral inflammatory changes are several centimeters distal to the calculus on the right side. STOMACH AND BOWEL: There has been a large bowel anastomosis to the distal sigmoid colon and a left hemicolectomy. Very shallow small supra umbilical hernia containing a short segment of one wall of small bowel, nonobstructing, , see series 2 image 52 There is a right upper quadrant large peritoneal defect through which contains multiple small bowel loops APPENDIX: No evidence of acute appendicitis on CT examination. PERITONEUM: No free fluid. No free air. LYMPH NODES: No lymphadenopathy is evident. VASCULATURE: No evidence of abdominal aortic aneurysm. BONES: No aggressive appearing osseous lesion. No acute osseous pathology evident. IMPRESSION: 1. There has been a large bowel anastomosis to the distal sigmoid colon and a left hemicolectomy. 2. The gallbladder is contracted, no radiopaque calculi. 3. There is mild right hydronephrosis, dilated right renal pelvis and a 6.9 mm calculus at the UPJ. 4. There are mild periureteral inflammatory changes are several centimeters distal to the calculus 5. Very shallow small supra umbilical hernia containing a short segment of one wall of small bowel, nonobstructing, , see series 2 image 52 6. There is a right upper quadrant large peritoneal defect through which contains multiple small bowel loops 7. The pulmonary bases are well-aerated. [address] Hunter who recommends Rocephine in ED. if pain is controlled discharge with flomax, cefitin, and pain medications to follow up with him in the office next week. Scribe Attestation: Documented byGabriela Mc, acting as a scribe for Russell Crump MD. Provider Scribe Attestation: All medical record entries made by the Scribe were at my direction and personally dictated by me. I have reviewed the chart and agree that the record accurately reflects my personal performance of the history, physical exam, medical decision making, and the department course for this patient. I have also personally directed, reviewed, and agree with the discharge instructions and disposition. Disposition - Clinical Impression Clinical Impression: Kidney stone on right side, Hematuria, Abdominal pain, Abdominal hernia - Patient ED Disposition Is Patient to be Admitted: No Doctor Will See Patient In The: Office Counseled Patient/Family Regarding: Studies Performed, Diagnosis, Need For F ollowup - Disposition Referrals: Angelo Hunter MD [Staff Provider] - [facility] [Outside] Disposition: Routine/Home Disposition Time: 00:55 Condition: GOOD Additional Instructions: FREEMAN ROTHMAN, thank you for letting us take care of you today. Your provider was Russell Crump MD and you were treated for ABD/BACK PAIN. The emergency medical care you received today was directed at your acute symptoms. If you were prescribed any medication, please fill it and take as directed. It may take several days for your symptoms to resolve. Return to the Emergency Department if your symptoms worsen, do not improve, or if you have any other problems. Please contact your doctor or call one of the physicians/clinics you have been referred to that are listed on the Patient Visit Information form that is included in your discharge packet. Bring any paperwork you were given at discharge with you along with any medications you are taking to your follow up visit. Our treatment cannot replace ongoing medical care by a primary care provider outside of the emergency department. Thank you for allowing the [facility] team to be part of your care today. If you had an X-Ray or CT scan: A Radiologist will review the ED reading if any change in treatment is needed we will contact you. If you had a blood, urine, or wound culture: It will take several days for the results, if any change in treatment is needed we will contact you. If you had an STI test: It will take 48 hours for the results. Please call after 1 week if you have not heard back. Prescriptions: Cefuroxime Axetil [Cefuroxime] 500 mg PO BID #14 tablet Ibuprofen [Motrin] 600 mg PO TID PRN #20 tab PRN Reason: Pain, Moderate (4-7) Tamsulosin [Flomax] 0.4 mg PO DAILY #30 cap RX: traMADol [Ultram] 50 mg PO TID PRN #15 tab PRN Reason: Pain, Severe (8-10) Instructions: Acute Abdomen (Belly Pain), Renal Colic (DC), Abdominal Hernia (DC) Forms: [employer] (Greenlandic) Print Language: HUNGARIAN
[2018-08-20 21:21] LABS: SQUAMOUS EPITHIAL < 1 /hpf (0-5); URINE BILIRUBIN NEGATIVE (NEGATIVE); URINE BLOOD LARGE (NEGATIVE); URINE CLARITY SLIGHTY-CLOUDY (Clear); URINE COLOR YELLOW (YELLOW); URINE GLUCOSE (UA) NEG (Normal); URINE LEUKOCYTE ESTERASE NEG Leu/uL (Negative); URINE PROTEIN 30 mg/dL (NEGATIVE); URINE UROBILINOGEN 0.2-1.0 mg/dL (0.2-1.0)
[2018-08-20] MEDS ORDERED: Ciprofloxacin 400mg/200ml D5W 400 MG/200 ML BAG IVPB STA (21:55)
[2018-08-20] MEDS ORDERED: Sodium Chloride 0.9% 1,000 ML IV STA (21:57)
[2018-08-20] MEDS ORDERED: Ciprofloxacin 400mg/200ml D5W 400 MG/200 ML BAG IVPB ONE (22:01)
[2018-08-20] MEDS ORDERED: Morphine 4 MG/ML VIAL ONE (22:01)
[2018-08-20] MEDS ORDERED: cefTRIAXone (Rocephin) 1 gm Inj ONE (22:11)
[2018-08-21 00:59] VITALS: BP 146/85; PULSE 65; RESP 17; TEMP 97.9
[2018-08-21 01:01] VITALS: O2SAT 98
--- NOTE | 2018-08-21 14:10 | CT ---
Date of service: 08/20/2018 PROCEDURE: CT Abdomen and Pelvis without intravenous contrast HISTORY: left flank pain COMPARISON: Comparison is made with prior study dated 05/11/2018 TECHNIQUE: Axial and reformatted coronal and sagittal CT images of the abdomen and pelvis were obtained. Contrast dose: 0 Radiation dose: Total exam DLP = 971.82 mGy-cm. This CT exam was performed using one or more of the following dose reduction techniques: Automated exposure control, adjustment of the mA and/or kV according to patient size, and/or use of iterative reconstruction technique. FINDINGS: LOWER THORAX: Unremarkable. LIVER: No significant interval change in the liver noted since the previous exam. No evidence of discrete mass. GALLBLADDER AND BILE DUCTS: The gallbladder is contracted. No evidence of intrahepatic biliary ductal dilatation. PANCREAS: Unremarkable. No gross lesion or ductal dilatation. SPLEEN: Unremarkable. ADRENALS: Unremarkable. No mass. KIDNEYS AND URETERS: Again noted is [id number] right hydronephrosis due to 6 millimeter calculus at the right UV junction. Mild fat stranding surrounding the proximal right ureter. Mild right perinephric stranding is also noted. The left kidney is grossly unremarkable. VASCULATURE: Unremarkable. No aortic aneurysm. No aortic atherosclerotic calcification or mural plaque present. BOWEL: The patient is status post prior partial less section of the large bowel. There is no evidence of high-grade bowel obstruction. Herniated small bowel loops in the right anterior abdominal wall are again noted without evidence of bowel obstruction or incarceration. APPENDIX: Unremarkable. Normal appendix. PERITONEUM: Unremarkable. No free fluid. No free air. LYMPH NODES: Unremarkable. No enlarged lymph nodes. BLADDER: Unremarkable. REPRODUCTIVE: Unremarkable. BONES: No acute fracture. OTHER FINDINGS: None. IMPRESSION: Again noted is moderate right hydronephrosis up to 6 millimeter calculus at the right UP junction/proximal right ureter. No significant interval change noted since the previous exam. Additional findings as discussed above. Preliminary report contains concordant findings was submitted to the referring [facility] radiology
== END 2018-08-21 01:29 | disposition home or self-care (01) ==
LOC: H.ER 19:00
DX: N20.0 Calculus of kidney (principal); R31.9 Hematuria, unspecified; R10.9 Unspecified abdominal pain; K42.9 Umbilical hernia without obstruction or gangrene; I10 Essential (primary) hypertension
CPT/HCPCS: 74176; 80048; 81003; 85025; 87040; 87086; 96374; 96375; 99283; J0696; J1885; J2270; J2405; J7030